=== PATIENT | female | born 2000 | race Caucasian/White ===

== ENCOUNTER 2025-03-05 15:00 | Emergency (ER) | payer BC, SELFPAY ==
[2025-03-05 15:15] VITALS: BP 140/69; PULSE 95; RESP 16; TEMP 36.6; O2SAT 100
[2025-03-05 15:42] LABS: EDUAAPPEAR Clear; EDUABILI Negative (Negative); EDUABLOOD Negative (Negative); EDUACOLOR1 Yellow; EDUAGLUCOSE Negative (Negative); EDUAKETONE Negative (Negative); EDUALEUKO 1+ (Negative); EDUANITRATE Negative (Negative); EDUAPH 6.5; EDUAPROTEIN Negative (Negative); EDUASPGRAVITY 1.015; EDUAUROBILI 0.2
--- NOTE | 2025-03-05 15:51 | ED.FEMALEGU ---
HPI - Female Genitourinary General Chief complaint: Urogenital-Female Stated complaint: Urinary Problem/Left Flank Pain Time Seen by Provider: 03/05/25 15:25 Source: patient Mode of arrival: ambulatory Limitations: no limitations History of Present Illness HPI Narrative: Sri is a 24-year-old female patient presenting to the clinic today with complaints of burning with urination and some left flank pain x2-3 days. She has had some frequent urinary tract infections since she has been . She is 20 weeks . Last she was placed on Macrobid and she states it did not help her symptoms. Is complaining of some flank pain and is concerned for a possible obstructing kidney stone. She denies any vaginal discharge or abdominal pain. States she is feeling the baby move all over all day long. She denies any fevers, chills, body aches. She is 3 para 2 Related Data Allergies Allergy/AdvReac Type Severity Reaction Status Date / Time No Known Allergies Allergy Verified 03/05/25 15:05 Review of Systems Review of Systems: Pertinent positives per HPI. Patient denies any fever, chills, rash, headache, visual changes, dizziness, cough, runny nose, sore throat, shortness of breath, chest pain, palpitations, nausea, vomiting, diarrhea, constipation, abdominal pain. PMFSH Comments At the time of my signature, I reviewed and agree with the nursing past medical, surgical, social, and family history. There is no relevant family history pertinent to the patient complaint. Exam Narrative: General: Well-developed, well nourished, in no acute distress. Head: Normocephalic, atraumatic. Cardio: Regular rate and rhythm, s1 and s2 normal, no murmur appreciated. Resp: Clear to auscultation bilaterally, no rhonchi, rales, wheezing or rubs. Abdomen: abdomen, soft, pliable, bowel sounds present in all quadrants, suprapubic tender to palpation, no organomegly, mild left CVAT tenderness. Course Course Level of Care: Express Care Visit Vital Signs Vital signs: Vital Signs Temperature 36.6 C 03/05/25 15:15 Pulse Rate 95 03/05/25 15:15 Respiratory Rate 16 03/05/25 15:15 Blood Pressure 140/69 03/05/25 15:15 Pulse Oximetry 100 03/05/25 15:15 Oxygen Delivery Room Air 03/05/25 15:15 Temperature 36.6 C 03/05/25 15:15 Pulse Rate 95 03/05/25 15:15 Respiratory Rate 16 03/05/25 15:15 Blood Pressure 140/69 03/05/25 15:15 Pulse Oximetry 100 03/05/25 15:15 Oxygen Delivery Room Air 03/05/25 15:15 MDM MDM Narrative Medical decision making narrative: At the time of visit patient is resting comfortably on the exam table. Patient appears to be nontoxic. Complaints of burning with urination and some left flank pain x2-3 days. She has had some frequent urinary tract infections since she has been . She is 20 weeks . Last she was placed on Macrobid and she states it did not help her symptoms. Is complaining of some flank pain and is concerned for a possible obstructing kidney stone. She denies any vaginal discharge or abdominal pain. States she is feeling the baby move all over all day long. She denies any fevers, chills, body aches. She is 3 para 2. On exam patient has mild tenderness over the left flank, suprapubic tenderness, soft, pliable, nondistended abdomen. Urine dip was ordered. A culture was ordered. Labs: Urine dip shows positive 1+ leukocytes without blood. Will send urine for culture Plan: I suspect patient has UTI. Prescription for cephalexin was sent to the pharmacy. Explained to the patient that we cannot rule out a kidney stone at this time as she is 20 weeks but there is no blood in her urine at this time. Recommend follow-up with OBGYN or go to the emergency room if her symptoms worsens as a may be able to do an ultrasound. Supportive measures were discussed with the patient and they voiced understanding discharge instructions and agrees to treatment plan. Return precautions reviewed Differential Diagnosis Differential Diagnosis: Differential diagnostic considerations for female urogenital issues include urinary tract infection, bacterial vaginosis, cervicitis, ovarian cyst, vaginitis, STI exposure, ovarian torsion, ectopic , cyst of Bartholin?s gland, cystitis, dysmenorrhea. Lab Data Labs: Lab Results 03/05/25 Range/Units 15:39 POC Urine Color Yellow POC Urine Clarity Clear POC Urine pH 6.5 POC Ur Specif [place] 1.015 POC Urine Protein Negative (Negative) POC Ur Glucose (UA) Negative (Negative) POC Urine Ketones Negative (Negative) POC Urine Blood Negative (Negative) POC Urine Nitrite Negative (Negative) POC Urine Bilirubin Negative (Negative) POC Urine Urobilinogen 0.2 POC U Leukocyte Esteras 1+ (Negative) Discharge Plan Discharge Clinical Impression: Urinary tract infection Qualifiers: Urinary tract infection type: acute cystitis Hematuria presence: without hematuria Qualified Code(s): N30.00 - Acute cystitis without hematuria Patient Disposition: Home Condition: Stable Instructions: Antibiotic Form, Urinary Tract Infection in Women (ED) Additional Instructions: Take prescription as prescribed-cephalexin Increase fluids and stay well hydrated Wipe front to back. May use wet wipes. Avoid tub baths If sexually active- pee before and after intercourse. Wear cotton panties Avoid tight clothing up against the genitals Follow up with your PCP in 1 week if symptoms persist. Patient Language: Dutch Prescriptions: New cephalexin 500 mg capsule 500 mg PO Q12H 7 Days Qty: 14 0RF Follow-up/Referrals: PHYSICIAN,ELECTRICAL ENGINEERING [employer]FT[employer]ERSON [Primary Care Provider, Internal Medicine] Time of Disposition: 15:55 Quality NIHSS Nursing Documentation ED NIHSS nursing documentation: reviewed/agree
== END 2025-03-05 16:08 | disposition home or self-care (01) ==
PROVIDERS: Emergency Provider Nurse Practitioner Family
DX: O23.12 Infections of bladder in pregnancy, second trimester (principal); N30.00 Acute cystitis without hematuria; Z3A.20 20 weeks gestation of pregnancy
CPT/HCPCS: 81003; 87086; 99203; G0463